=== PATIENT | female | born 1950 | race Hispanic/Latino ===

== ENCOUNTER 2024-01-17 05:45 | Day surgery (SDC) | payer OTHER ==
[2024-01-12 13:12] VITALS: BP 153/59; PULSE 70; RESP 18
[2024-01-12 13:24] LABS: INR <= 0.93 (0.85-1.15); PROTHROMBIN TIME 10.9 SEC (9.6-11.6)
[2024-01-12 13:25] LABS: PARTIAL THROMBOPLASTIN TIME 30.9 SEC (26.3-35.5)
[~2024-01-17] VITALS: Ht 162.6 cm; Wt 57.0 kg
[2024-01-17] VITALS (23 sets, daily range): BP systolic 132–169; BP diastolic 55–75; PULSE 70–115; RESP 12–22
[~2024-01-17 05:45] MED LIST: ALBU18HF7 IH
[2024-01-17] MEDS: LACTATED RINGERS 1000ML 1,000 ML IV ONE (07:48)
[2024-01-17] MEDS ORDERED: KETAMINE 50MG/ML SYRINGE 50 MG/ML DISP.SYRIN ONE (08:24)
[2024-01-17] MEDS ORDERED: LIDOCAINE PF 100MG/5ML (2%) SYRINGE 5ML ONE (08:26)
[2024-01-17] MEDS ORDERED: PROPOFOL 10 MG/ML 20ML VIAL IV ONE (08:26)
[2024-01-17] MEDS ORDERED: FENTANYL CITRATE PF 50 MCG/1 ML 5ML AMP IV ONE (08:26)
[2024-01-17] MEDS ORDERED: ROCURONIUM BROMIDE 10MG/1ML 5ML VL ONE (08:26)
[2024-01-17] MEDS: CEFAZOLIN SODIUM 2 GM VIAL ONE (09:00)
[2024-01-17] MEDS: BUPIVACAINE/PF 0.5% 30ML VIAL ONE (09:10)
[2024-01-17] MEDS ORDERED: EPHEDRINE SULFATE 50 MG/ML AMPULE ONE (09:10)
[2024-01-17] MEDS ORDERED: METH-662 PO (09:36)
[2024-01-17] MEDS ORDERED: DOCU-116 PO (09:36)
[2024-01-17] MEDS ORDERED: TRAM50TA4 PO (09:36)
[2024-01-17] MEDS ORDERED: GABA-529 PO (09:36)
[2024-01-17] MEDS ORDERED: IOHEXOL-350 50ML VIAL IV ONE (09:40)
[2024-01-17] MEDS ORDERED: SUGAMMADEX SODIUM 200 MG/2 ML VIAL IV ONE (09:45)
[2024-01-17] MEDS: ONDANSETRON 4MG INJ ONE ×2 (10:26→11:41)
[2024-01-17] MEDS: MEPERIDINE-PF 25 MG/ML SYG ONE (10:26)
[2024-01-17] MEDS: ACETAMINOPHEN 1,000 MG/100 ML VIAL IV ONE (10:26)
[2024-01-17] MEDS: KETOROLAC 15MG/ML VIAL (15MG/ML) ONE (10:33)
[2024-01-17] MEDS: FENTANYL CITRATE PF 50 MCG/1 ML 2ML VIAL ONE (11:30)
== END 2024-01-17 13:24 | disposition home or self-care (01) ==
LOC: DAH 05:45
PROVIDERS: ATTEND Surgery
DX: K82.8 Other specified diseases of gallbladder (principal); K81.1 Chronic cholecystitis; I10 Essential (primary) hypertension; G47.33 Obstructive sleep apnea (adult) (pediatric); M19.90 Unspecified osteoarthritis, unspecified site; Z79.01 Long term (current) use of anticoagulants; Z79.899 Other long term (current) drug therapy; Z82.49 Family history of ischemic heart disease and other diseases of the circulatory system; Z80.0 Family history of malignant neoplasm of digestive organs
CPT/HCPCS: 85610; 85730; 36415; 47563; 74300; A6260; A4663; J7030; A4215 ×2; C1758; J7120; J3010 ×2; J3490 ×3; J2001; J2704; J2405 ×2; J0665; J2175; J1885; Q9967; J0690; A4649 ×2; A4930; A4223; A4335; A4222; A4221; A4600; 48400